=== PATIENT | female | born 1985 | race Caucasian/White ===

== ENCOUNTER 2017-02-21 07:39 | Emergency (ER) | payer SELFPAY ==
[~2017-02-21 07:39] MED LIST: ADVAIR 250-501 EAC1 IH; ALBUTEROL17 GM; ALBUTEROL17 GM INH; AMOXICILLIN PO; ATARAX PO; BACTRIM DS TABL1 TAB PO; BUPROPION HCL150 M3 PO; CELEXA PO; CELEXA20 MG PO; COMBIVENT MININEB; DESYREL50 MG PO; IBUPROFEN PO; IBUPROFEN800 MG PO; KEFLEX PO; MIGRAINE MED; NEXIUM PO; ORTHO TRI-7 DAYS X PO; ORTHO TRI-7 DAYSX 3 PO; PREDNISONE PO; PRENATAL VITAMI1 TA4 PO; PRENATAL1 TA1 PO; PROVENTIL0.83 MG/ML IH; TRAZODONE; TRAZODONE PO; ULTRAM PO; VICODIN PO; WELLBUTRIN PO
[2017-03-22] MEDS ORDERED: ROBAXIN (16:54)
== END 2017-02-21 08:35 | disposition home or self-care (01) ==
LOC: SED 07:39
DX: J45.909 Unspecified asthma, uncomplicated (principal); H66.91 Otitis media, unspecified, right ear; F17.210 Nicotine dependence, cigarettes, uncomplicated; Z88.2 Allergy status to sulfonamides; Z88.8 Allergy status to other drugs, medicaments and biological substances; Z91.040 Latex allergy status; Z79.899 Other long term (current) drug therapy
CPT/HCPCS: 99282

== ENCOUNTER 2017-03-08 22:51 | Emergency (ER) | payer SELFPAY ==
--- NOTE | ~2017-03-08 | CR181 ---
[facility]. [facility] A Service of [facility] & [facility] RADIOLOGY TEXT RESULTS PATIENT: JOSIAH CUELLO LOCATION: SED : [birth year] UNIT #: [id number] AGE: [address]: Caleb John SEX: F ORDER DR: [id number] [place] [id number] E MR#: [id number] Acc #: [id number] NAME: JOSIAH CUELLO : 1985 SEX: F STUDY DATE/TIME: 03/08/2017 23:31 UNIT: SED ROOM: STUDY DESCRIPTION: CR Lumbar Spine 2 or 3 Views Attending Physician: Caleb John P.A.-C. Ordering Physician: Caleb John P.A.-C. Primary Care Physician: [facility] MEDICAL IMAGING REPORT This report is preliminary unless electronic signature is present. EXAM Lumbar spine, 03/08/2017 at 23:31 INDICATION Low back pain after falling off a couch yesterday. FINDINGS AP and lateral projections of the lumbar segment show good mineralization of both anterior and posterior elements. They are all anatomically normal without indication of fracture, dislocation, or malignant change of a sclerotic or lytic type. There is no congenital defect noted. The sacroiliac joints are normal. IMPRESSION Normal lumbar spine. Dictated by... Bola Nolen Jr., M.D. THIS IS AN ELECTRONICALLY VERIFIED REPORT Bola Nolen Jr., M.D. at 03/09/2017 6:23 AM TOSHIA/presley TD: 03/09/2017 00:05 JOB #: [id number] MEDICAL IMAGING REPORT Page 1 of 1
--- NOTE | ~2017-03-08 | CR151 ---
[facility]. [facility] A Service of [facility] & [facility] RADIOLOGY TEXT RESULTS PATIENT: JOSIAH CUELLO LOCATION: SED : 86 UNIT #: [id number] AGE: [address]: Caleb John SEX: F ORDER DR: [id number] [place] [id number] E MR#: [id number] Acc #: [id number] NAME: JOSIAH CUELLO : 1985 SEX: F STUDY DATE/TIME: 03/08/2017 23:31 UNIT: SED ROOM: STUDY DESCRIPTION: CR Hip Min 2 Views Rt Attending Physician: Caleb John P.A.-C. Ordering Physician: Caleb John P.A.-C. Primary Care Physician: [facility] MEDICAL IMAGING REPORT This report is preliminary unless electronic signature is present. EXAM Pelvis and right hip, 03/08/2017 at 23:31 INDICATION Right hip and leg pain after fall off couch yesterday. FINDINGS AP pelvis was obtained in addition to a frog-leg right hip. No fracture or malalignment is seen. Both femoral heads are normal. Incidental note is made of an IUD in the central pelvis. IMPRESSION Negative pelvis and right hip. Dictated by... Bola Nolen Jr., M.D. THIS IS AN ELECTRONICALLY VERIFIED REPORT Bola Nolen Jr., M.D. at 03/09/2017 6:23 AM TOSHIA/presley TD: 03/09/2017 00:20 JOB #: [id number] MEDICAL IMAGING REPORT Page 1 of 1
--- NOTE | ~2017-03-08 | CR173 ---
[facility] [[email or web address] A Service of [facility] & [facility] / [facility] RADIOLOGY TEXT RESULTS PATIENT: JOSIAH CUELLO LOCATION: SED : 86 UNIT #: [id number] AGE: [address]: Caleb John SEX: F ORDER DR: [id number] [place] [id number] E MR#: [id number] Acc #: [id number] NAME: JOSIAH CUELLO : 1985 SEX: F STUDY DATE/TIME: 03/08/2017 23:31 UNIT: SED ROOM: STUDY DESCRIPTION: CR Knee 3 Views Rt Attending Physician: Caleb John P.A.-C. Ordering Physician: Caleb John P.A.-C. Primary Care Physician: [facility] MEDICAL IMAGING REPORT This report is preliminary unless electronic signature is present. EXAM Right knee, 03/08/2017 at 23:31 INDICATION Knee pain after falling off a couch yesterday. FINDINGS 3 views of the right knee were obtained. There is no fracture or malalignment. There is no joint effusion. IMPRESSION Normal right knee. Dictated by... Bola Nolen Jr., M.D. THIS IS AN ELECTRONICALLY VERIFIED REPORT Bola Nolen Jr., M.D. at 03/09/2017 6:23 AM TOSHIA/presley TD: 03/09/2017 00:27 JOB #: [id number] MEDICAL IMAGING REPORT Page 1 of 1
--- NOTE | ~2017-03-08 | CR107 ---
[facility]. [facility] A Service of [facility] & [facility] RADIOLOGY TEXT RESULTS PATIENT: JOSIAH CUELLO LOCATION: SED : 86 UNIT #: [id number] AGE: [address]: Caleb John SEX: F ORDER DR: [id number] [place] [id number] E MR#: [id number] Acc #: [id number] NAME: JOSIAH CUELLO : 1985 SEX: F STUDY DATE/TIME: 03/08/2017 23:31 UNIT: SED ROOM: STUDY DESCRIPTION: CR Femur 2 Views Rt Attending Physician: Caleb John P.A.-C. Ordering Physician: Caleb John P.A.-C. Primary Care Physician: [facility] MEDICAL IMAGING REPORT This report is preliminary unless electronic signature is present. EXAM Right femur, 03/08/2017 at 23:31 INDICATION Right leg pain after fall off couch yesterday. FINDINGS 4 views of the right femur were obtained. There is no fracture or malalignment. Soft tissues unremarkable. IMPRESSION Normal right femur. Dictated by... Bola Nolen Jr., M.D. THIS IS AN ELECTRONICALLY VERIFIED REPORT Bola Nolen Jr., M.D. at 03/09/2017 6:23 AM TOSHIA/presley TD: 03/09/2017 00:25 JOB #: [id number] MEDICAL IMAGING REPORT Page 1 of 1
[2017-03-22] MEDS ORDERED: ROBAXIN (16:54)
== END 2017-03-09 00:54 | disposition home or self-care (01) ==
LOC: SED 22:51
DX: M54.41 Lumbago with sciatica, right side (principal); F31.9 Bipolar disorder, unspecified; J45.909 Unspecified asthma, uncomplicated; F17.200 Nicotine dependence, unspecified, uncomplicated; Z88.2 Allergy status to sulfonamides; Z91.040 Latex allergy status; Z79.899 Other long term (current) drug therapy
CPT/HCPCS: 72100; 73502; 73552; 73562; 84703; 99284

== ENCOUNTER 2017-03-22 17:41 | Emergency (ER) | payer SELFPAY ==
--- NOTE | ~2017-03-22 | CR229 ---
[facility] A Service [facility] RADIOLOGY TEXT RESULTS PATIENT: JOSIAH CUELLO LOCATION: SED : [birth year] UNIT #: [id number] AGE: [address]: Kaycee Prescott APRN SEX: F ORDER DR: [id number] [address] [address] [id number] E MR#: [id number] Acc #: [id number] NAME: JOSIAH CUELLO : 1985 SEX: F STUDY DATE/TIME: 03/22/2017 17:09 UNIT: SED ROOM: STUDY DESCRIPTION: CR Shoulder Min 2 View Lt Attending Physician: Kaycee Prescott A.P.R.N. Ordering Physician: Kaycee Stanford A.P.R.N. Primary Care Physician: [facility] MEDICAL IMAGING REPORT This report is preliminary unless electronic signature is present. EXAM Left shoulder 03/22/2017 INDICATIONS Pain in the left shoulder; pain at the base of the neck extending into the shoulder. Symptoms began week ago. No known injury. TECHNIQUE 3 views left shoulder COMPARISON No comparisons FINDINGS There is no acute fracture. No shoulder separation or dislocation. No significant degenerative change. Low lung volumes and probable atelectasis in the lung bases. IMPRESSION Negative left shoulder Dictated by... Kelvin Campuzano M.D. THIS IS AN ELECTRONICALLY VERIFIED REPORT Kelvin Campuzano M.D. at 03/23/2017 7:27 AM ADOLFOY/maico TD: 03/22/2017 19:57 JOB #: [id number] [facility] A Service [facility] RADIOLOGY TEXT RESULTS PATIENT: JOSIAH CUELLO LOCATION: SED : [birth year] UNIT #: [id number] AGE: [address]: Kaycee Prescott APRN SEX: F ORDER DR: MEDICAL IMAGING REPORT Page 1 of 1
--- NOTE | ~2017-03-22 | CR58 ---
[facility] A Service [facility] RADIOLOGY TEXT RESULTS PATIENT: JOSIAH CUELLO LOCATION: SED : [birth year] UNIT #: [id number] AGE: [address]: Kaycee Prescott APRN SEX: F ORDER DR: [id number] [address] [address] [id number] E MR#: [id number] Acc #: [id number] NAME: JOSIAH CUELLO : 1985 SEX: F STUDY DATE/TIME: 03/22/2017 17:09 UNIT: SED ROOM: STUDY DESCRIPTION: CR Cervical Spine 2 or 3 Views Attending Physician: Kaycee Prescott A.P.R.N. Ordering Physician: Kaycee Stanford A.P.R.N. Primary Care Physician: [facility] MEDICAL IMAGING REPORT This report is preliminary unless electronic signature is present. EXAM Cervical series 03/22/2017 INDICATIONS Pain in the left shoulder; pain at the base of the neck extending into the shoulder that began week ago. No known injury. 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 COMPARISON No comparisons. FINDINGS Dens and lateral masses intact. Vertebral body heights and alignment preserved. No acute fracture. Cervicothoracic junction intact. Soft tissues unremarkable. No significant degenerative change. IMPRESSION Negative cervical series. Dictated by... Kelvin Campuzano M.D. THIS IS AN ELECTRONICALLY VERIFIED REPORT Kelvin Campuzano M.D. at 03/23/2017 7:27 AM REMA/maico TD: 03/22/2017 19:58 JOB #: [id number] [facility] A Service [facility] RADIOLOGY TEXT RESULTS PATIENT: JOSIAH CUELLO LOCATION: SED : [birth year] UNIT #: [id number] AGE: [address]: Kaycee Prescott APRN SEX: F ORDER DR: MEDICAL IMAGING REPORT Page 1 of 1
[~2017-03-22 17:41] MED LIST changes: +ROBAXIN
== END 2017-03-22 18:25 | disposition home or self-care (01) ==
LOC: SED 17:41
DX: S46.912A Strain of unspecified muscle, fascia and tendon at shoulder and upper arm level, left arm, initial encounter (principal); M54.12 Radiculopathy, cervical region; F31.9 Bipolar disorder, unspecified; F17.210 Nicotine dependence, cigarettes, uncomplicated; Z88.2 Allergy status to sulfonamides; Z88.8 Allergy status to other drugs, medicaments and biological substances; Z79.899 Other long term (current) drug therapy; X58.XXXA Exposure to other specified factors, initial encounter; Y92.89 Other specified places as the place of occurrence of the external cause
CPT/HCPCS: 72040; 73030; 99284

== ENCOUNTER → 2017-04-19 | Outpatient (CLI) | payer BC ==
--- NOTE | ~2017-04-19 | CR151 ---
[facility]. [facility] A Service of [facility] & [facility] RADIOLOGY TEXT RESULTS PATIENT: JOSIAH CUELLO LOCATION: [facility] : [birth year] UNIT #: [id number] AGE: [address]: Imtiaz Cool Jr, MD SEX: F ORDER DR: [id number] [place] [id number] O MR#: [id number] Acc #: [id number] NAME: JOSIAH CUELLO : 1985 SEX: F STUDY DATE/TIME: 04/19/2017 12:41 UNIT: SRAD ROOM: STUDY DESCRIPTION: CR Hip Min 2 Views Rt Attending Physician: Imtiaz Cool Jr., M.D. Referring Physician: Imtiaz Cool Jr., M.D. Ordering Physician: Imtiaz Cool Jr., M.D. Primary Care Physician: [facility] MEDICAL IMAGING REPORT This report is preliminary unless electronic signature is present. EXAM Right hip 04/19/2017 HISTORY 32-year-old woman bilateral hip pain past 6 months. COMPARISON 03/08/2017. FINDINGS AP and frog-leg lateral views of the right hip demonstrate preservation of the joint space. There is no narrowing or marginal osteophyte formation. There are no cystic erosions. Mineralization is preserved. Cortex intact. Generous soft tissues reflect a morbid obesity. IMPRESSION Negative right hip Dictated by... Paulo Menard M.D. THIS IS AN ELECTRONICALLY VERIFIED REPORT Paulo Menard M.D. at 04/20/2017 8:11 AM YOVANI/stephanie TD: 04/19/2017 16:40 JOB #: [id number] MEDICAL IMAGING REPORT Page 1 of 1
--- NOTE | ~2017-04-19 | CR150 ---
[facility]. [facility] A Service of [facility] & [facility] RADIOLOGY TEXT RESULTS PATIENT: JOSIAH CUELLO LOCATION: [facility] : [birth year] UNIT #: [id number] AGE: [address]: Imtiaz Cool Jr, MD SEX: F ORDER DR: [id number] [place] [id number] O MR#: [id number] Acc #: [id number] NAME: JOSIAH CUELLO : 1985 SEX: F STUDY DATE/TIME: 04/19/2017 12:41 UNIT: SRAD ROOM: STUDY DESCRIPTION: CR Hip Min 2 Views Lt Attending Physician: Imtiaz Cool Jr., M.D. Referring Physician: Imtiaz Cool Jr., M.D. Ordering Physician: Imtiaz Cool Jr., M.D. [facility] REPORT This report is preliminary unless electronic signature is present. EXAM Left hip, 04/19/2017, [facility]. HISTORY 32-year-old woman with unexplained bilateral hip pain past 6 months. FINDINGS AP pelvis with frogleg lateral view of the left hip demonstrates preservation of the joint space. I see no osteophyte formation and no cystic erosions. Cortex is intact. Mineralization appears normal. Soft tissues are normal. IMPRESSION Negative left hip. Large body habitus again noted. Dictated by... Paulo Menard M.D. THIS IS AN ELECTRONICALLY VERIFIED REPORT Paulo Menard M.D. at 04/20/2017 8:11 AM YOVANI/raymond TD: 04/19/2017 16:18 JOB #: [id number] MEDICAL IMAGING REPORT Page 1 of 1
== END | disposition home or self-care (01) ==
LOC: SRAD 12:31
DX: M25.551 Pain in right hip (principal); M25.552 Pain in left hip
CPT/HCPCS: 73502

== ENCOUNTER 2017-05-27 17:51 | Emergency (ER) | payer BC | END 2017-05-27 19:35 | disposition home or self-care (01) | LOC: SED 17:51 → CED 18:30 → SED 18:30 | DX: F41.1 Generalized anxiety disorder (principal); K08.89 Other specified disorders of teeth and supporting structures; R03.0 Elevated blood-pressure reading, without diagnosis of hypertension; F31.9 Bipolar disorder, unspecified; J45.909 Unspecified asthma, uncomplicated; Z79.899 Other long term (current) drug therapy; Z88.2 Allergy status to sulfonamides; Z88.1 Allergy status to other antibiotic agents; Z91.040 Latex allergy status | CPT/HCPCS: 99283 ==

== ENCOUNTER 2017-08-04 22:03 | Emergency (ER) | payer BC ==
[~2017-08-04] VITALS: Ht 157.5 cm; Wt 99.8 kg
[2017-08-04 22:33] LABS: URINE SOURCE CLEAN CATCH
[2017-08-04 22:36] LABS: URINE APPEARANCE HAZY; URINE BILIRUBIN NEG (NEG); URINE BLOOD NEG (NEG); URINE COLOR YELLOW; URINE GLUCOSE NEG (NORM); URINE KETONE NEG (NEG); URINE LEUKOCYTE ESTERASE 2+ (NEG); URINE NITRATE NEG (NEG); URINE PROTEIN NEG (NEG)
[2017-08-04 22:37] LABS: MICRO INDICATED? YES
[2017-08-04 22:42] LABS: CULTURE INDICATED? YES; URINE BACTERIA 1+ (NEG); URINE SQUAMOUS EPITHELIAL CELL MANY /[HPF]
[2017-08-04 22:43] LABS: URINE MUCUS PRESENT
[2017-08-04 22:52] LABS: BASOPHIL# 0.1 X10e3 (0-0.3); BASOPHIL% 0.5 % (0-2.5); EOSINOPHIL# 0.3 X10e3 (0-0.7); EOSINOPHIL% 2.8 % (0.0-7.0); HEMATOCRIT 41.8 % (35.0-45.0); HEMOGLOBIN 14.7 gm/dL (12.0-16.0); LYMPHOCYTE# 3.6 X10e3 (1.0-3.5); LYMPHOCYTE% 29.3 % (17.0-45.0); MEAN CELL VOLUME 87.5 FL (83-96); MEAN CORPUSCULAR HEMOGLOBIN 30.7 PG (28-34); MEAN CORPUSCULAR HGB CONC 35.1 g/dL (30-36); MEAN PLATELET VOLUME 8.4 FL (6.5-11.5); MONOCYTE# 1.1 X10e3 (0-1.0); MONOCYTE% 9.1 % (3.0-12.0); NEUTROPHIL# 7.3 X10e3 (1.5-7.1); NEUTROPHIL% 58.3 % (40-75); PLATELET COUNT 237 X10e3 (140-420); RED BLOOD COUNT 4.78 X10e (3.90-5.30); RED CELL DISTRIBUTION WIDTH 12.7 % (11.0-15.5); WHITE BLOOD COUNT 12.4 X10e3 (4.0-10.5)
[2017-08-04 22:55] LABS: DIFF IND NO
[2017-08-04 23:15] LABS: ALBUMIN SERUM 3.9 g/dL (3.5-5.0); BILIRUBIN, DIRECT 0.1 mg/dL (0.0-0.2); BILIRUBIN,INDIRECT 0.3 mg/dL (0.0-0.9); BILIRUBIN,TOTAL 0.4 mg/dL (0.2-2.0); BUN/CREATININE RATIO 15.71; CALCIUM SERUM 9.2 mg/dL (8.4-10.2); CREATININE SERUM 0.7 mg/dL (0.6-1.4); GLOM FILT RATE Estimated 115.5 mL/min (>60); POTASSIUM 3.6 mmol/L (3.5-5.1); PROTEIN TOTAL SERUM 6.8 g/dL (6.0-8.3)
== END 2017-08-05 00:22 | disposition home or self-care (01) ==
LOC: SED 22:03
PROVIDERS: Nurse Practitioner Family
DX: O23.91 Unspecified genitourinary tract infection in pregnancy, first trimester (principal); O99.511 Diseases of the respiratory system complicating pregnancy, first trimester; O99.331 Smoking (tobacco) complicating pregnancy, first trimester; F17.210 Nicotine dependence, cigarettes, uncomplicated; Z3A.10 10 weeks gestation of pregnancy; J45.909 Unspecified asthma, uncomplicated; Z88.2 Allergy status to sulfonamides; Z88.8 Allergy status to other drugs, medicaments and biological substances; Z91.040 Latex allergy status; Z79.899 Other long term (current) drug therapy
CPT/HCPCS: 36415; 80048; 80076; 81003; 83690; 84703; 85025; 87086; 96361; 96374; 96375; 99284; J2405; J2765

== ENCOUNTER 2017-08-05 21:33 | Emergency (ER) | payer BC ==
[~2017-08-05] VITALS: Ht 157.5 cm; Wt 99.8 kg
== END 2017-08-05 22:36 | disposition home or self-care (01) ==
LOC: SED 21:33
DX: K05.219 Aggressive periodontitis, localized, unspecified severity (principal); K02.9 Dental caries, unspecified; F41.9 Anxiety disorder, unspecified
CPT/HCPCS: 41800; 99282

== ENCOUNTER 2017-08-12 08:49 | Emergency (ER) | payer BC | END 2017-08-12 10:05 | disposition home or self-care (01) | LOC: SED 08:49 | DX: K05.219 Aggressive periodontitis, localized, unspecified severity (principal); F17.200 Nicotine dependence, unspecified, uncomplicated; Z88.2 Allergy status to sulfonamides; Z88.0 Allergy status to penicillin; Z91.040 Latex allergy status; Z79.899 Other long term (current) drug therapy | CPT/HCPCS: 99283 ==